=== PATIENT | female | born 1940 | race Caucasian/White ===

== ENCOUNTER → 2016-08-04 | Outpatient (CLI) | payer MEDICARE, BC ==
[~2016-08-04] MED LIST: ASPIR-LOW81 MG PO; BETAMETHASONE D45 GM TP; BUMETANIDE1 MG PO; CARDIZEM CD180 MG PO; CEFTIN250 MG PO; CHERATUSSIN DA473 ML PO; DALIRESP500 MCG PO; DIOVAN320 MG PO; DUONEB DPS3 ML IH; EUCERIN CREME57 GM TP; K-TAB ER20 MEQ PO; LANOXIN DPS0.125 MG PO; MAG-OX400 MG PO; MICRO-K DPS10 MEQ PO; MIRAPEX0.125 MG PO; MUCINEX600 MG PO; MYCELEX TROCHE10 MG PO; MYCOSTATIN PWD15 GM TP; PRADAXA75 MG PO; PREDNISONE5 MG PO; PROCTOSOL-HC28.35 GM TP; PROTONIX40 MG PO; QUALAQUIN324 MG PO; SINGULAIR10 MG PO; SKELAXIN800 MG PO; SPIRIVA18 MCG IH; SYMBICORT160 MCG/6 IH; TESSALON PERLE100 M1 PO; THEO-24300 MG PO; TYLENOL DPS325 MG PO; ULTRAM DPS50 MG PO; VITAMIN D50000 UNIT PO; VOLTAREN100 GM TP; XOPENEX1.25 MG/3 IH; ZEBETA10 MG PO; ZIAC 2.52.5 MG PO
== END | disposition home or self-care (01) ==
LOC: PTH.S 08-03 09:00
DX: D64.9 Anemia, unspecified (principal); J44.9 Chronic obstructive pulmonary disease, unspecified